=== PATIENT | male | born 1965 | race African-American/Black ===

== ENCOUNTER → 2021-08-25 | Emergency (ER) | payer OTHER ==
[~2021-08-25] VITALS: Ht 172.7 cm; Wt 72.6 kg
[~2021-08-25] MED LIST: AMLO-213 PO; BENA20TA9 PO; METF-440 PO
[2021-08-25 15:58] VITALS: BP 176/107
--- NOTE | 2021-08-25 16:54 | NUR ---
Patient discharged to home in stable condition. Written and verbal after care instructions given. Patient verbalizes understanding of instruction.
== END | disposition home or self-care (01) ==
LOC: ER 16:00
DX: I10 Essential (primary) hypertension (principal); E11.9 Type 2 diabetes mellitus without complications; Z79.84 Long term (current) use of oral hypoglycemic drugs; Z79.899 Other long term (current) drug therapy